=== PATIENT | female | born 1965 | race Caucasian/White ===

== ENCOUNTER → 2017-06-23 | Day surgery (SDC) | payer BC ==
[~2017-06-23] MED LIST: BACITRACIN 50000 UNITS/VIAL ONE; BUPIVACAINE 0.5 % PF 150 MG/30 ML VIAL ONE; CLINDAMYCIN 900 MG/6 ML VIAL ONE; FENTANYL PF 100MCG/2ML AMPUL ONE; HYDROCODONE/APAP 5/325MG 1 EACH TABLET ONE; MIDAZOLAM HCL 2 MG/2ML VIAL ONE; SCOPOLAMINE HBR 1 EA PATCH.TD72 TD ONE
== END | disposition home or self-care (01) ==
LOC: DS 07:03
PROVIDERS: ATTEND Specialist
DX: G56.01 Carpal tunnel syndrome, right upper limb (principal); M65.311 Trigger thumb, right thumb; Z88.8 Allergy status to other drugs, medicaments and biological substances; Z87.891 Personal history of nicotine dependence; G47.33 Obstructive sleep apnea (adult) (pediatric)
CPT/HCPCS: A4217; A6402; J1100; J2250; J2405; J2704; J3010; J3490